=== PATIENT | female | born 1985 | race Hispanic/Latino ===

== ENCOUNTER 2017-03-02 09:22 | Emergency (ER) | payer OTHER ==
[~2017-03-02] VITALS: Ht 175.3 cm; Wt 71.8 kg
[~2017-03-02 09:22] MED LIST: AMARYL2 MG OR; ATORVASTATIN CA40 MG PO; AUGMENTIN875TAB PO; AVANDIA8 MG OR; BLOOD GLUCOSE TEST S SC; DONNATA2 PO; FENOFIBRATE160 MG OR; FLEXERIL PO; FLONASE NASAL50 MCG; GLYBURIDE5 MG PO; INVOKANA100 MG PO; JANUMET1 TA1 PO; JANUMET1 TAB OR; LANTUS100 MG/ML SC; LEVEMIR FL100 UNIT/M SC; LIPITOR20 MG PO; LISINOPRIL2.5 MG PO; LOPID600 MG PO; LOVAZA1 GM PO; METFORMIN1000 MG PO; METFORMIN500 M1 OR; METFORMIN500 MG PO; NAPROSYN500 MG PO; NOVOLOG MIX100 U/ML SC; NOVOLOG100 IU/1 M; NOVOLOG100 IU/1 M SC; OMEPRAZOLE20 M1 PO; PERCOCET 5/325M1 TAB PO; PREDNISONE20 MG PO; PREVACID30 M1 PO; PREVPAC OR; REOCYTE PLUS OR; TRICOR145 MG PO; ULTRAM50 M1 PO; VALACYCLOVIR500 MG PO; ZESTRIL/PRINIV2.5 MG PO; ZITHROMAX250 MG PO; ZOFRAN ODT4 MG PO; ZOFRAN ODT8 MG OR; [UNRECOGNIZED DRUG - OTHER]
[2017-03-02 10:46] LABS: URINE BILIRUBIN - DIPSTICK NEGATIVE (NEGATIVE); URINE BLOOD DIPSTICK NEGATIVE (NEGATIVE); URINE CLARITY CLEAR; URINE COLOR YELLOW; URINE GLUCOSE - DIPSTICK >=1000 mg/dL (NEGATIVE); URINE KETONE 15 mg/dL (NEGATIVE); URINE LEUK ESTERASE NEGATIVE (NEGATIVE); URINE NITRITE - DIPSTICK NEGATIVE (Negative); URINE PROTEIN - DIPSTICK NEGATIVE (NEG-TRACE); URINE SPECIFIC GRAVITY <=1.005; URINE UROBILINOGEN - DIPSTICK 0.2 E.U./dL (0.2)
[2017-03-02 10:50] LABS: HEMATOCRIT 43.1 % (37.0-47.0); HEMOGLOBIN 16.4 g/dl (12.0-16.0); IMMATURE GRANULOCYTES 0.5 % (0.0-1.0); MEAN CORPUSCULAR HGB 29.3 pG CALC (26.0-32.0); MEAN CORPUSCULAR HGB CONC 38.1 g/L CALC (32.0-36.0); RED BLOOD COUNT 5.6 mill/uL (4.20-5.60); RED CELL DISTRI WIDTH 15.7 % (11.5-15.5)
[2017-03-02 10:57] LABS: ALKALINE PHOSPHATASE 107 u/l (38-126); AMYLASE 77 u/l (30-110); ANION GAP 26 (6-22 (CALC)); BILIRUBIN, TOTAL 1.7 mg/dL (0.0-1.4); BUN 20 mg/dL (7-17); BUN/CREATININE RATIO 39 (12-20 (CALC)); CALCIUM 9.2 mg/dL (8.4-10.2); CARBON DIOXIDE 15 mmol/l (22-30); CHLORIDE 103 mmol/l (95-108); CREATININE 0.5 mg/dL (0.5-1.0); GFR > 60 ML/MIN (>=60 (CALC)); GFR FOR AFR.AMER. > 60 ML/MIN (>=60 (CALC)); GLUCOSE 216 mg/dL (65-105); LIPASE 271 u/l (23-300); POTASSIUM 4.6 mmol/l (3.5-5.1); SGOT/AST 63 u/l (14-36); SGPT/ALT 37 u/l (9-52); SODIUM 139 mmol/l (137-146); TOTAL PROTEIN 9.5 g/dL (6.3-8.2)
[2017-03-02] MEDS ORDERED: OMEGA 31000 MG PO (10:57)
[2017-03-02] MEDS ORDERED: NOVOLOG100 IU/1 M SC (10:57)
[2017-03-02] MEDS ORDERED: CREON6000 UNIT PO (10:58)
[2017-03-02] MEDS ORDERED: LOFIBRA160 MG PO (10:58)
[2017-03-02 11:08] LABS: MYOGLOBIN 17 ng/mL (0 - 62)
[2017-03-02 14:49] VITALS: BP 136/85
== END 2017-03-02 14:54 | disposition home or self-care (01) | DRG 392 ==
LOC: ED 09:22
PROVIDERS: Emergency Medicine
DX: R10.13 Epigastric pain (principal); E11.9 Type 2 diabetes mellitus without complications; N83.202 Unspecified ovarian cyst, left side; Z79.4 Long term (current) use of insulin; Z96.41 Presence of insulin pump (external) (internal)
CPT/HCPCS: Q9967

== ENCOUNTER 2017-05-07 13:13 | Emergency (ER) | payer OTHER ==
[~2017-05-07] VITALS: Ht 175.3 cm; Wt 78.0 kg
[~2017-05-07 13:13] MED LIST changes: +CREON6000 UNIT PO; +LOFIBRA160 MG PO; +NOVOLOG FL100 UNIT/M SC; +OMEGA 31000 MG PO
[2017-05-07 14:04] LABS: HEMATOCRIT 40.6 % (37.0-47.0); IMMATURE GRANULOCYTES 0.8 % (0.0-1.0); MEAN CELL VOLUME 78.5 fL CALC (80.0-100.0); MEAN CORPUSCULAR HGB 30.9 pG CALC (26.0-32.0); MEAN CORPUSCULAR HGB CONC 39.4 g/L CALC (32.0-36.0); NEUT# 3.85 thou/uL (2.00-7.15); RED BLOOD COUNT 5.17 mill/uL (4.20-5.60); RED CELL DISTRI WIDTH 17.1 % (11.5-15.5)
[2017-05-07 14:06] LABS: ALBUMIN 4.6 g/dL (3.2-5.0); ALKALINE PHOSPHATASE 145 u/l (38-126); ANION GAP 18 (6-22 (CALC)); BUN 11 mg/dL (7-17); BUN/CREATININE RATIO 18 (12-20 (CALC)); CARBON DIOXIDE 22 mmol/l (22-30); CHLORIDE 100 mmol/l (95-108); CREATININE 0.6 mg/dL (0.5-1.0); GFR > 60 ML/MIN (>=60 (CALC)); GFR FOR AFR.AMER. > 60 ML/MIN (>=60 (CALC)); GLUCOSE 356 mg/dL (65-105); SGOT/AST 54 u/l (14-36); SGPT/ALT 51 u/l (9-52); SODIUM 136 mmol/l (137-146)
[2017-05-07 14:12] LABS: URINE BILIRUBIN - DIPSTICK NEGATIVE (NEGATIVE); URINE BLOOD DIPSTICK NEGATIVE (NEGATIVE); URINE CLARITY CLEAR; URINE COLOR YELLOW; URINE GLUCOSE - DIPSTICK >=1000 mg/dL (NEGATIVE); URINE KETONE NEGATIVE (NEGATIVE); URINE LEUK ESTERASE NEGATIVE (NEGATIVE); URINE NITRITE - DIPSTICK NEGATIVE (Negative); URINE PH 5.5 (4.5-8.0); URINE PROTEIN - DIPSTICK NEGATIVE (NEG-TRACE); URINE SPECIFIC GRAVITY <=1.005; URINE UROBILINOGEN - DIPSTICK 0.2 E.U./dL (0.2)
[2017-05-07 14:14] LABS: BARBITURATES NEGATIVE (NEGATIVE); COCAINE NEGATIVE (NEGATIVE); METHADONE NEGATIVE (NEGATIVE); OXCYCODONE NEGATIVE (NEGATIVE); TETRAHYDROCANNABIONOL NEGATIVE (NEGATIVE); TRICYLIC ANTIDEPRESSANTS NEGATIVE (NEGATIVE)
[2017-05-07] MEDS ORDERED: FARXIGA5 MG PO (14:28)
[2017-05-07 17:14] VITALS: BP 115/70
== END 2017-05-07 17:14 | disposition home or self-care (01) | DRG 639 ==
LOC: ED 13:13
PROVIDERS: Emergency Medicine
DX: E11.65 Type 2 diabetes mellitus with hyperglycemia (principal); R11.0 Nausea; Z79.4 Long term (current) use of insulin